=== PATIENT | female | born 1995 | race Caucasian/White ===

== ENCOUNTER 2023-11-28 09:51 | Inpatient (IN) ==
[2023-11-28] MEDS ORDERED: LIDOCAINE 1% LOCAL 20 ML VIAL INFIL PRN (10:22)
[2023-11-28] MEDS ORDERED: OXYTOCIN 30 UNITS/NSS 30 UNITS/500 ML BAG IV PRN (10:22)
[2023-11-28] MEDS ORDERED: PENICILLIN GK 6 MU in DEXTROSE 5% 250 ML IV STA (10:27)
[2023-11-28 10:56] LABS: Hematocrit (blood only) 37.8 % (37.0-47.0); Hemoglobin 12.9 g/dl (12.0-16.0); Mean Corpuscular Hemoglobin 30.6 pg (25.0-34.0); Mean Corpuscular Hgb Conc 34.1 g/dL (32.0-36.0); Mean Corpuscular Volume 89.6 fL (80.0-100.0); Mean Platelet Volume 11.8 fL (9.4-12.4); Platelet Count 188 K/uL (130-400); RDW Coefficient of Variation 12.7 % (11.5-14.5); RDW Standard Deviation 41.6 fL (36.4-46.3); Red Blood Count 4.22 M/uL (4.20-5.40); White Blood Count 8.17 K/ul (4.8-10.8)
[2023-11-28 11:09] LABS: Albumin Globulin Ratio 1.1 (0.9-2); Albumin Level 3.5 gm/dl (3.4-5.0); BUN Creatinine Ratio 17.5 (10-20); Bilirubin,Total 0.9 mg/dl (0.2-1.0); Creatinine Clr Calc Pharmacy 218.4 ml/min; Est GFR (African American) 145.2 ml/min; Est GFR (Non-African American) 125.3 ml/min; Globulin 3.1 gm/dl (2.5-4.0); Potassium 4.2 mmol/L (3.5-5.1); Total Protein 6.6 gm/dl (6.0-8.3)
[2023-11-28 11:17] LABS: Creatinine Urine Random 34.6 mg/dl; Protein Creatinine Ratio Urine 0.2 (0-0.2); Total Protein Urine Random 7.3 mg/dl (0-11.9)
--- NOTE | 2023-11-28 11:28 | History & Physical Report ---
Date of Service November 28, 2023 Assessment & Plan (1) Gestational hypertension: Plan: Dx met: gHTN without severe features. Patient has prior CSec and a cervix that is unfavorable at this time, unproven pelvis and maternal obesity. Prior section was for breech, gHTN. Baby was 7-8lb. Discussed options of IOL vs RCS with Dr. Street who will be covering care of this patient overnight tonight. [place] decision to recommend repeat based on all contributing factors, to maximize chances of safe outcome for mom and baby in present circumstances. Patient was hoping for but understands / agreeable to proceed with repeat as recommended. History of Present Illness Primary Care Provider: NO PCP 28yo @ 38w4d with gHTN, for IOL. Preeclampsia labs normal today, Pr/Cr ratio 0.2, but BP over threshold for HTN both a week ago and repeatedly again today. Recommended IOL and patient accepts. No current OB c/o. Preg c/b prior PIH, prior CSec for breech, and obese. Patient is interested in and would prefer to be induced. GBS pos. Allergies Allergy/AdvReac Type Severity Reaction Status Date / Time latex Allergy Unknown itchy Verified 11/28/23 08:55 Home Medications Medication Instructions Recorded Confirmed Type cholecalciferol (vitamin D3) 25 50 mcg PO DAILY 11/14/23 11/28/23 History mcg (1,000 unit) tablet (Vitamin D3) vit no.133-ferrous 1 tab PO QAM 11/14/23 11/28/23 History fumarate 28 mg-folic acid 800 mcg tablet () Past Med/Surg History Problem List Gestational hypertension Group beta Strep positive History of chicken pox Prior complicated by PIH, antepartum Previous delivery affecting , antepartum Medical History No known health problems Surgical History S/P section (~2021) Family History Grandmother (Maternal) No problems noted. 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: No Beliefs That Will Affect Care: None marital status: marital status details: Arnel Jones (31) [phone] Current Living Situation: Family Current Living Situation Comment: lives with spouse, daughter, no pets current occupational status: unemployed current occupation: homemaker Other Information That Helps Us Care for You: No Feels Safe at Home: Yes Safety Concerns: Feels Safe At This Time Assistive Devices: None Physical Exam Constitutional: WD/WN, vitals as above Eyes: PERRL, conjunctivae normal, anicteric sclerae ENMT: external ear and nose normal, oropharynx normal Neck: supple Respiratory: normal respiratory effort and able to speak in complete sentences; no respiratory distress Cardiovascular: Rate/Rhythm: regular rate and regular rhythm Extremities: + pedal edema (2+) Gastrointestinal (Abdomen): Gravid / AGA, morbid obesity, NT Musculoskeletal: no cyanosis or clubbing, extremities motor strength 5/5 Skin: no rashes, warm and dry Neurologic: patellar DTR's 2+ bilat, sensation intact Psychiatric: A+Ox3, euthymic affect Genitourinary: Speculum/Bimanual Exam: no vaginal lesions, no vaginal bleeding and uterus nontender OB Exam Abdomen: + vertex and + estimated weight (8) Manual OB Exam: + cervical dilation 1 cm, + cervical effacement (thick), + station high and + amniotic fluid (No leaking evident) OB Exam Monitor Tracing: + external FHT monitor used, + external uterine monitor used and + category I Lymphatic: no cervical or axillary lymphadenopathy Results & Data Results & Data Vital Signs (Past 12 Hours) Vital Signs Temp Pulse Resp BP 11/28/23 11:21 78 11/28/23 11:21 140/95 11/28/23 11:06 82 11/28/23 11:06 148/93 H 11/28/23 10:51 94 H 11/28/23 10:51 149/94 H 11/28/23 10:36 81 11/28/23 10:36 150/92 H 11/28/23 10:21 90 11/28/23 10:21 134/91 11/28/23 10:11 98.4 F 20 11/28/23 10:05 20 11/28/23 10:05 98.2 F 11/28/23 10:04 95 H 137/90 PG Care Time/CCT Total # of Minutes Spent Total Time Spent with Patient: Total time spent is greater than 50% in coordination of care (as documented) at patient's floor/unit and/or counseling patient: Coding Level of Care Code None Diagnoses Gestational hypertension O13.9
[2023-11-28] MEDS: LACTATED RINGER'S 1,000 ML IV PRN (12:11)
--- NOTE | 2023-11-28 13:04 | Anesthesiology Consultation ---
Date of Service November 28, 2023 Assessment & Plan (1) Encounter for pre-operative examination: Chart Review Chart Review: Acceptable Risk for Surgery and Patient NOT seen in Pre Admission Testing Consults Requested none History Surgery Operation Date: 11/28/23 12:[address] Scan Lung Biopsy - Elly Almanza MD Height/Weight Height: 5 ft 7 in Weight: 145.15 kg Allergies Allergy/AdvReac Type Severity Reaction Status Date / Time latex Allergy Unknown itchy Verified 11/28/23 08:55 Medications Home Medications Medication Instructions Recorded Confirmed Last Taken cholecalciferol (vitamin D3) 25 50 mcg PO DAILY 11/14/23 11/28/23 Unknown mcg (1,000 unit) tablet (Vitamin D3) vit no.133-ferrous 1 tab PO QAM 11/14/23 11/28/23 Unknown fumarate 28 mg-folic acid 800 mcg tablet () Active Medications Generic Name Dose Route Start Last Admin Trade Name Freq PRN Reason Stop Dose Admin Lactated Ringer's 1,000 mls @ 125 mls/hr 11/28/23 10:22 11/28/23 12:11 Lr IV 11/30/23 10:21 999 mls/hr .Q8H PRN Administration L&D Protocol Protocol Past Medical History Medical History No known health problems Past Family History Family History Grandmother (Maternal) No problems noted. Grandmother (Paternal) Ovarian cancer Father Prostate cancer Denies family history of Breast cancer Colorectal cancer Past Surgical History Surgical History S/P section (~2021) Social History Smoking Status: Never smoker Do You Dip or Chew Tobacco: No Hx Alcohol Use: No Hx Substance Use: No substance use type: does not use Physical Exam Vital Signs Last Vital Signs Temp 98.4 F 11/28/23 10:11 Pulse 78 11/28/23 11:21 Resp 20 11/28/23 10:11 BP 140/95 11/28/23 11:21 Testing Laboratory Results 11/28/23 10:37 11/28/23 10:37 Blood Type B Positive 11/28/23 10:37 Antibody Screen NEGATIVE 11/28/23 10:37
[2023-11-28] MEDS ORDERED: MoRPHine SULFATE PF 1 MG/ML 10 ML AMP/VIAL ONE (13:05)
[2023-11-28] MEDS ORDERED: fentaNYL citrate PF 100 MCG/2 ML VIAL ONE (13:05)
[2023-11-28] MEDS ORDERED: PENICILLIN GK 3 MU in DEXTROSE 5% 100 ML IV PRN (13:22)
[2023-11-28] MEDS: ceFAZolin 3000MG 3,000 MG/72.5 ML BAG IV SCH (13:50)
[2023-11-28] MEDS: CITRIC ACID/SODIUM CITRATE 15 ML UDC PO SCH (13:51)
[2023-11-28] MEDS ORDERED: ONDANSETRON INJ 2 MG/ML 2 ML VIAL ONE (14:12)
[2023-11-28] MEDS ORDERED: PHENYLEPHRINE HCL 25 MG/250 ML NSS IV ONE (14:12)
[2023-11-28] MEDS ORDERED: OXYTOCIN 10 UNITS/ML VIAL ONE (14:12)
[2023-11-28] MEDS ORDERED: KETOROLAC 30 MG/ML VIAL ONE (14:12)
[2023-11-28] MEDS ORDERED: ePHEDrine sulfate 50 MG/ML AMP IV PRN (14:21)
[2023-11-28] MEDS ORDERED: ACETAMINOPHEN 1,000 MG/100 ML VIAL IV PRN (14:21)
[2023-11-28] MEDS ORDERED: PROMETHAZINE HCL 6.25 MG in SODIUM CHLORIDE 0.9% 50 ML IV PRN (14:21)
[2023-11-28] MEDS ORDERED: NALBUPHINE HCL 5 MG in SYRINGE 0 ML IV PRN (14:21)
[2023-11-28] MEDS ORDERED: NALOXONE HCL 0.08 MG in SYRINGE 1.8 ML IV PRN (14:21)
[2023-11-28] MEDS ORDERED: KETOROLAC 30 MG/ML VIAL IV PRN (14:21)
[2023-11-28] MEDS ORDERED: NALOXONE HCL 1 MG in SODIUM CHLORIDE 0.9% 1,000 ML IV PRN (14:21)
[2023-11-28] MEDS ORDERED: ONDANSETRON INJ 2 MG/ML 2 ML VIAL IV PRN (14:21)
[2023-11-28] MEDS ORDERED: diphenhydrAMINE 50 MG/ML VIAL IV PRN (14:21)
[2023-11-28] MEDS ORDERED: HYDROmorphone INJ 0.5 MG/0.5 ML SYR IV PRN (14:21)
[2023-11-28] MEDS ORDERED: LACTATED RINGER'S 500 ML IV PRN (14:21)
[2023-11-28] MEDS ORDERED: NALOXONE HCL 0.4 MG/1 ML VIAL/CARP IV PRN (14:21)
[2023-11-28] MEDS ORDERED: DC INTRASPINAL MORPHINE SCH (14:30)
[2023-11-28] MEDS ORDERED: NO NARCOTICS OR SEDATIVES SCH (14:30)
[2023-11-28] MEDS ORDERED: ARISTA ABSORBABLE HEMOSTAT 3GM TOP ONE (14:38)
[2023-11-28] MEDS ORDERED: DIPHTHER/TETAN/PERTUS Vaccine (Tdap, Adol/Adult) 0.5mL IM ONE (14:53)
[2023-11-28] MEDS ORDERED: HYDROCORTISONE ACETATE 25 MG SUPP PR PRN (14:53)
[2023-11-28] MEDS ORDERED: SENNA 8.6 MG TAB PO PRN (14:53)
[2023-11-28] MEDS ORDERED: PROMETHAZINE HCL 25 MG in SODIUM CHLORIDE 0.9% 50 ML IV PRN (14:53)
[2023-11-28] MEDS ORDERED: MAGNESIUM HYDROXIDE SUSP 30 ML UDC PO PRN (14:53)
[2023-11-28] MEDS ORDERED: BENZOCAINE 20% SPRY 85 APPLN/85 GM CAN EXT PRN (14:53)
--- NOTE | 2023-11-28 15:05 | Operative Report ---
PG Post Operative Report Pre & Post Diagnosis Operation Date: 11/28/23 12:30 Pre-Op Diagnosis: Gestational hypertension @ 38+ weeks, Prior Section, Maternal Obesity, GBS + Post-Op Diagnosis: Same I identified the patient and participated in the time-out.: Yes Procedure Operation Date: 11/28/23 12:30 Actual Procedures Repeat Low Transverse Section with two layer closure Surgeon Elly Almanza MD Content Strategist Yenifer Estimated Blood Loss 420 (Quantitative) Findings Consistent with Post-Op Diagnosis Specimens Placenta, Cord blood Anesthesia Type Spinal Complications none Disposition Accompanied Patient To Recovery: Yes Disposition: L&D Description of Procedure The patient was placed operating table in the supine position with a leftward tilt. She was prepped and draped in standard sterile fashion. The anesthetic was tested and found to be adequate. A time-out was held, identifying correct patient, procedure, positioning and preoperative antibiotics. There were no concerns. A Pfannenstiel skin incision was made with a knife excising the prior cicatrix and taken down to the underlying layer of fascia. The fascia was incised in the midline with the knife and taken out laterally with scissors. The superior edge of the fascial incision was grasped, elevated and dissected off the underlying rectus both superiorly and inferiorly. The muscles were bluntly in the midline. The peritoneum was entered bluntly. The incision was then stretched. An Robert retractor was placed. The bladder retractor was placed. The vesicouterine peritoneum was identified, entered with scissors and taken out laterally with scissors. The bladder flap was created digitally. A hysterotomy incision was created transversely in the lower uterine segment, final entry being accomplished in a blunt manner with the potato chip packaging machine operator's fingers. Clear amniotic fluid was encountered. The potato chip packaging machine operator's hand was used to elevate the head to the hysterotomy. The head was delivered using mild fundal pressure, and the shoulders and body followed without difficulty. The cord was clamped and cut and the infant was then handed off to the awaiting hydrocrane operator. Cord blood was obtained. The placenta was Manually extracted. The uterus was cleared of all clot and debris with moistened laparotomy sponges. The hysterotomy incision was repaired in two layers, the first in a running locked layer, the second in an imbricating layer. The gutters were cleared of clot and debris. A final inspection of the hysterotomy revealed incomplete hemostasis, so [place] 3g was applied and pressure held for 60sec. When oozing persisted at two specific spots, these were addressed with a [id number] suture of vicryl each, for excellent hemostasis. The rectus muscles were allowed to reapproximate naturally. The fascia was then reapproximated with 1 Vicryl in a running nonlocked manner. The fascia was examined and found to be free of defect following closure. The subcutaneous tissue was copiously irrigated and reapproximated with 0-chromic, then the skin edges were closed with 4-0 monocryl in a subcuticular fashion. A dermabond dressing was applied. The mary was found to be draining clear yellow urine at completion of the procedure. I attest to the content of the Intraoperative Record and any orders documented therein. Any exceptions are noted below. I attest to the content of the Intraoperative Record and any orders documented therein. Any exceptions are noted below. OB Procedure Charges 21084
--- NOTE | 2023-11-28 15:38 | Anesthesiology Progress Note ---
Date of Service November 28, 2023 Anesthesia Post Procedure Vital Signs Vital Signs: Temp Pulse Resp BP Pulse Ox 11/28/23 15:32 98 11/28/23 15:32 71 11/28/23 15:30 77 11/28/23 15:30 126/59 L 11/28/23 15:27 98 11/28/23 15:27 66 11/28/23 15:22 97 11/28/23 15:22 65 11/28/23 15:21 73 11/28/23 15:21 122/58 L 11/28/23 15:17 97 11/28/23 15:17 73 11/28/23 15:15 91 11/28/23 15:15 70 11/28/23 15:12 97 11/28/23 15:12 82 11/28/23 15:08 86 11/28/23 15:08 129/69 11/28/23 15:07 97 11/28/23 15:07 87 11/28/23 11:21 78 11/28/23 11:21 140/95 11/28/23 11:06 82 11/28/23 11:06 148/93 H 11/28/23 10:51 94 H 11/28/23 10:51 149/94 H 11/28/23 10:36 81 11/28/23 10:36 150/92 H 11/28/23 10:21 90 11/28/23 10:21 134/91 11/28/23 10:11 98.4 F 20 11/28/23 10:05 20 11/28/23 10:05 98.2 F 20 11/28/23 10:04 95 H 137/90 Transfer of Care Handoff Completed per policy Notes Mental Status: alert / awake / arousable and participated in evaluation Patient Amnestic to Procedure: Yes Nausea / Vomiting: adequately controlled Pain: adequately controlled Airway Patency, RR, SpO2: stable & adequate BP & HR: stable & adequate Hydration State: stable & adequate Neuraxial Anesthesia: was administered and sensory block is resolving Anesthetic Complications: no major complications apparent and Pt Satisfied with anesthetic care
[2023-11-28] MEDS ORDERED: SODIUM CHLORIDE 0.9% 250 ML IV PRN (15:47)
[2023-11-28] MEDS: OXYTOCIN 20 UNITS/LR 1,002 ML IV SCH (17:24)
[2023-11-28] MEDS: SIMETHICONE 80 MG CHEW PO SCH (18:29)
[2023-11-28] MEDS: DOCUSATE SODIUM 100 MG CAP PO SCH (20:55)
[2023-11-28] MEDS: LACTATED RINGER'S 1,000 ML IV ONE (21:50)
[2023-11-29] MEDS ORDERED: CITRIC ACID/SODIUM CITRATE 15 ML UDC PO SCH (06:00)
--- NOTE | 2023-11-29 07:02 | Obstetrical Progress Note ---
Date of Service November 29, 2023 Assessment & Plan (1) Gestational hypertension: Day 1 status post repeat section. Doing well. Routine care. Blood pressures within normal limit Trimester: third trimester Qualified Code(s): O13.3 - Gestational [-induced] hypertension without significant proteinuria, third trimester (2) Encounter for care and examination after delivery: Subjective Ambulation: ambulating normally Voiding: no voiding problems Passing Gas:: Yes Diet Tolerance:: regular diet Lochia:: Moderate Feeding Type:: breast feeding Physical Exam Constitutional WD/WN, vitals as above Respiratory normal respiratory effort; no respiratory distress and no labored breathing Cardiovascular Extremities: no calf tenderness Gastrointestinal (Abdomen) Inspection/Auscultation: abdomen normal to inspection; abdomen not distended Percussion/Palpation: abdomen soft; abdomen nontender, no guarding and abdomen not rigid Incision clean, dry and intact Genitourinary OB Exam Abdomen: + fundal height Fundus: + firm and + relation to umbilicus (Below); not tender or not boggy Results & Data Vital Signs (Past 12 Hours) Vital Signs Temp Pulse Resp BP Pulse Ox Pulse Ox O2 Del Method 11/29/23 03:00 16 95 11/29/23 03:00 36.9 C 102 H 18 112/82 100 Room Air 11/29/23 02:00 18 100 11/29/23 01:00 18 96 11/29/23 00:25 20 94 11/28/23 23:30 36.9 C 110 H 18 112/86 97 Room Air 11/28/23 23:00 18 97 11/28/23 22:00 18 96 11/28/23 21:00 20 99 11/28/23 20:00 18 98 11/28/23 19:32 36.5 C 127 H 20 124/91 100 Room Air 11/28/23 19:30 18 100 11/28/23 19:30 100 O2 Del Method 11/29/23 03:00 11/29/23 03:00 11/29/23 02:00 11/29/23 01:00 11/29/23 00:25 11/28/23 23:30 11/28/23 23:00 11/28/23 22:00 11/28/23 21:00 11/28/23 20:00 11/28/23 19:32 11/28/23 19:30 11/28/23 19:30 Room Air
[2023-11-29 07:52] LABS: Basophils # (auto) 0.02 K/uL (0.00-0.20); Basophils % (auto) 0.2 %; Hematocrit (blood only) 30.4 % (37.0-47.0); Hemoglobin 10.5 g/dl (12.0-16.0); Immature Granulocytes # (auto) 0.05 K/uL (0.01-0.20); Immature Granulocytes % (auto) 0.4 %; Lymphocytes # (auto) 1.41 K/uL (1.20-3.40); Lymphocytes % (auto) 11.1 %; Mean Corpuscular Hemoglobin 31.2 pg (25.0-34.0); Mean Corpuscular Hgb Conc 34.5 g/dL (32.0-36.0); Mean Corpuscular Volume 90.2 fL (80.0-100.0); Mean Platelet Volume 12.2 fL (9.4-12.4); Monocytes # (auto) 0.69 K/uL (0.11-0.59); Monocytes % (auto) 5.5 %; Neutrophils # (auto) 10.48 K/uL (1.40-6.50); Neutrophils % (auto) 82.8 %; Platelet Count 231 K/uL (130-400); Red Blood Count 3.37 M/uL (4.20-5.40); White Blood Count 12.65 K/ul (4.8-10.8)
[2023-11-29] MEDS: LACTATED RINGER'S 1,000 ML IV SCH (08:15)
[2023-11-29] MEDS ORDERED: ONDANSETRON INJ 2 MG/ML 2 ML VIAL IV PRN (08:22)
[2023-11-29] MEDS ORDERED: KETOROLAC 30 MG/ML VIAL IV PRN (08:22)
[2023-11-29] MEDS ORDERED: diphenhydrAMINE 50 MG/ML VIAL IV PRN (08:22)
[2023-11-29] MEDS ORDERED: diphenhydrAMINE Capsule 25 MG CAP PO PRN (08:22)
[2023-11-29] MEDS: FERROUS SULFATE 325 MG TAB PO SCH (09:01)
[2023-11-29] MEDS: PRENATAL VITAMIN 1 TAB PO SCH (09:01)
[2023-11-29] MEDS: IBUPROFEN 600 MG TAB PO PRN (09:01)
[2023-11-29] MEDS: MoRPHine SULFATE PF 1 MG/ML 10 ML AMP/VIAL INT SPINAL ONE (10:53)
[2023-11-29] MEDS: SODIUM CHLORIDE 0.9% 1,000 ML IV SCH (10:53)
[2023-11-29] MEDS: bisacodyL 5 MG TABEC PO SCH (19:40)
[2023-11-29] MEDS: oxyCODONE/ACETAMINOPHEN 5mg/325mg TAB PO PRN (19:41)
[2023-11-30 06:48] LABS: Hematocrit (blood only) 22.8 % (37.0-47.0); Hemoglobin 7.8 g/dl (12.0-16.0)
--- NOTE | 2023-11-30 09:08 | Obstetrical Progress Note ---
Date of Service November 30, 2023 Assessment & Plan (1) Gestational hypertension: BP normalized, no meds required. Trimester: third trimester Qualified Code(s): O13.3 - Gestational [-induced] hypertension without significant proteinuria, third trimester (2) Encounter for care and examination after delivery: Clinically doing great. Hgb noted but patient tolerating well and lochia WNL, so will d/c home with PO iron. Subjective Ambulation: ambulating normally Voiding: no voiding problems Passing Gas:: Yes Diet Tolerance:: regular diet Lochia:: Small Feeding Type:: breast feeding Physical Exam Sitting in chair , then moved to bed for exam. Constitutional WD/WN, vitals as above Eyes PERRL, conjunctivae normal, anicteric sclerae Neck normal visual inspection Respiratory normal respiratory effort and able to speak in complete sentences; no respiratory distress and no labored breathing Cardiovascular Rate/Rhythm: regular rate and regular rhythm Extremities: no edema Chest (Breasts) Chest: normal inspection of chest Gastrointestinal (Abdomen) Inspection/Auscultation: abdomen normal to inspection Soft, postgravid. Incision C/D/I with surgical glue Psychiatric A+Ox3, euthymic affect Genitourinary OB Exam Abdomen: + fundal height Fundus: + firm and + relation to umbilicus (fundus just below umbilicus); not tender Results & Data Vital Signs (Past 12 Hours) Vital Signs Temp Pulse Resp BP Pulse Ox O2 Del Method 11/29/23 23:45 98.1 F 94 H 18 123/86 97 Room Air
[2023-11-30] MEDS ORDERED: bisacodyL 10 MG SUPP PR PRN (14:53)
--- NOTE | 2023-12-02 07:52 | Discharge Summary ---
Date of Service December 02, 2023 Admission HPI Per Admitting Provider 28yo @ 38w4d with gHTN, for IOL. Preeclampsia labs normal today, Pr/Cr ratio 0.2, but BP over threshold for HTN both a week ago and repeatedly again today. Recommended IOL and patient accepts. No current OB c/o. Preg c/b prior PIH, prior CSec for breech, and obese. Patient is interested in and would prefer to be induced. GBS pos. Admission Exam (Per Admitting) Constitutional WD/WN, vitals as above Eyes PERRL, conjunctivae normal, anicteric sclerae ENMT external ear and nose normal, oropharynx normal Neck normal visual inspection Respiratory normal respiratory effort and able to speak in complete sentences; no respiratory distress and no labored breathing Cardiovascular Rate/Rhythm: regular rate and regular rhythm Extremities: + pedal edema (2+); no edema Chest (Breasts) Chest: normal inspection of chest Gastrointestinal (Abdomen) Inspection/Auscultation: abdomen normal to inspection Musculoskeletal no cyanosis or clubbing, extremities motor strength 5/5 Skin no rashes, warm and dry Neurologic patellar DTR's 2+ bilat, sensation intact Psychiatric A+Ox3, euthymic affect Genitourinary Speculum/Bimanual Exam: no vaginal lesions, no vaginal bleeding and uterus nontender OB Exam Abdomen: + fundal height, + vertex, + estimated weight (8) and + regular contractions (Q3) Manual OB Exam: + cervical dilation + 1 cm, + cervical effacement (thick), + station + high and + amniotic fluid (No leaking evident) OB Exam Monitor Tracing: + external FHT monitor used, + external uterine monitor used and + category I Lymphatic no cervical or axillary lymphadenopathy Discharge Data Consultations 11/28/23 10:22 Consult Anesthesiology Stat Procedures Performed Operation Date: 11/28/23 12:30 Actual Procedures p Section in LD, delivery of live female child at 1429(Bilateral) - Elly Almanza MD Hospital Course (1) Gestational hypertension: BP normalized, no meds required. (2) Encounter for care and examination after delivery: Clinically doing great. Hgb noted but patient tolerating well and lochia WNL, so will d/c home with PO iron. Coding Level of Care Code None Diagnoses Gestational hypertension, third trimester O13.3 Trimester: third trimester Encounter for care and examination after delivery Z39.2
== END 2023-11-30 11:30 | disposition home or self-care (01) | DRG 788 ==
LOC: OPB 09:51 → 4S1 09:55 → 4E2 18:14
DX: O34.211 Maternal care for low transverse scar from previous cesarean delivery; Z28.21 Immunization not carried out because of patient refusal; Z91.040 Latex allergy status; B95.1 Streptococcus, group B, as the cause of diseases classified elsewhere; Z37.0 Single live birth; O13.9 Gestational [pregnancy-induced] hypertension without significant proteinuria, unspecified trimester; O99.824 Streptococcus B carrier state complicating childbirth

== ENCOUNTER 2025-01-21 05:26 | Inpatient (IN) ==
--- NOTE | 2025-01-10 15:17 | Anesthesiology Consultation ---
Date of Service January 10, 2025 Assessment & Plan (1) Encounter for pre-operative examination: - Per matching machine operator on 01/10/25: No known infectious disease contacts, current infectious disease symptoms in past 10 days or COVID positive test result in the past 30 days. Chart Review Chart Review: carpentry supervisor initiated History Surgery Operation Date: 01/21/25 08:50 Proposed Procedures p Section (Delivery of Baby Through Abdominal Incision) - Paola Rivas, DO Height/Weight Height: 5 ft 7 in Weight: 133.356 kg Allergies Allergy/AdvReac Type Severity Reaction Status Date / Time latex Allergy Unknown itchy Verified 01/10/25 14:20 Medications Home Medications Medication Instructions Recorded Confirmed Last Taken cholecalciferol (vitamin D3) 25 50 mcg PO DAILY 11/14/23 01/10/25 Unknown mcg (1,000 unit) tablet (Vitamin D3) vits no.133-ferrous 1 tab PO QAM 11/14/23 01/10/25 Unknown fumarate 28 mg-folic acid 800 mcg tablet () lactobacillus combination no.4 3 3,000 mmu cells PO DAILY 01/10/25 01/10/25 Unknown billion cell capsule (Probiotic) Past Medical History Medical History (Updated 01/10/25 @ 15:16 by Juany Jang PA-C) Gestational hypertension History of chicken pox childhood Past Family History Family History Grandmother (Maternal) No problems noted. Grandmother (Paternal) Ovarian cancer Father Prostate cancer Denies family history of Breast cancer Colorectal cancer Past Surgical History Surgical History S/P section (~2021) x2 Social History Smoking Status: Never smoker Do You Dip or Chew Tobacco: No Hx Alcohol Use: No Hx Substance Use: No substance use type: does not use Lab Results Anesthesia Preop Results Results Anesthesia Widget: Hgb 12.1 g/dl (12.0-16.0) 12/10/24 Hct 36.0 % (37.0-47.0) L 12/10/24 Urine Color Yellow 12/10/24 Urine Appearance Clear (Clear) 12/10/24 Urine pH 7.5 (4.5-7.5) 12/10/24 Urine Specific [place] 1.004 (1.000-1.030) 12/10/24 Urine Protein Negative (Negative) 12/10/24 Urine Glucose (UA) Negative (Negative) 12/10/24 Urine Ketones Negative (Negative) 12/10/24 Urine Blood Negative (Negative) 12/10/24 Urine Nitrite Negative (Negative) 12/10/24 Urine Bilirubin Negative (Negative) 12/10/24 Urine Urobilinogen Negative (Negative) 12/10/24 Urine Leukocyte Esterase 1+ (Negative) H 12/10/24 Urine WBC (Auto) 0-5 /hpf (0-5) 12/10/24 Urine RBC (Auto) 0-2 /hpf (0-2) 12/10/24 Urine Hyaline Casts (Auto) 0-2 /lpf (0-2) 12/10/24 Urine Epithelial Cells (Auto) 3-5 /hpf (0-2) H 12/10/24 Urine Bacteria (Auto) None Seen (None Seen) 12/10/24
--- NOTE | 2025-01-20 11:03 | History & Physical Report ---
Date of Service January 20, 2025 Assessment & Plan (1) Previous delivery affecting , antepartum: Plan: Plan for repeat section, reviewed consent in detail. Discussed increased risk of scarring d/t previous c-sections, which increases risk of in jury during surgery. Questions answered. History of Present Illness Chief Complaint: repeat section Primary Care Provider: PHYLICIA PCP 29yo with EDC 02/02/25. Previous Section affecting x 2 C/S SCHEDULED 01/21/[address] KIRK AND DR. DICKEY ASSIST Hx gHTN in prior two pregnancies GBS + in urine CHTN *Baby ASA daily start 12-28 wks, continue until delivery *wkly NST's @32wks and twice wkly @36 wks *Serial Growth US @ 24 (doppler only if abnml) *Baseline 24hr urine (additioinal PRN) *weekly LUDIN's @ 32wk(If on Meds) *Deliver [id number] (If on Meds) *Deliver [id number] (Not on Meds) Obesity (BMI 40 and higher @ beginning of ) *Growth US @ 32wks *Weekly NSTs @ 34wks *BMI 40 or greater offer detailed/level II anatomy at [facility] - she would prefer to do it here *BMI 40 or above offer delivery by [facility]. Rubella non-immune offer MMR pp Hepatitis B non-immune recommend vaccine Allergies Allergy/AdvReac Type Severity Reaction Status Date / Time latex Allergy Unknown itchy Verified 01/20/25 10:07 Home Medications Medication Instructions Recorded Confirmed Type cholecalciferol (vitamin D3) 25 50 mcg PO DAILY 11/14/23 01/20/25 History mcg (1,000 unit) tablet (Vitamin D3) vits no.133-ferrous 1 tab PO QAM 11/14/23 01/20/25 History fumarate 28 mg-folic acid 800 mcg tablet () lactobacillus combination no.4 3 3,000 mmu cells PO DAILY 01/10/25 01/20/25 History billion cell capsule (Probiotic) Patient History Medical History (Updated 01/10/25 @ 15:16 by Juany Jang PA-C) Gestational hypertension History of chicken pox childhood Surgical History S/P section (~2021) x2 Family History Grandmother (Maternal) No problems noted. Grandmother (Paternal) Ovarian cancer Father Prostate cancer Denies family history of Breast cancer Colorectal cancer Social History Smoking Status: Never smoker Second Hand Exposure: No; Do You Dip or Chew Tobacco: No; Tobacco Cessation Education Requested by Patient: No Hx Alcohol Use: No Hx Substance Use: No Preferred Language: Serbian Communication Ability: Effective Internet Programmer Required: No Beliefs That Will Affect Care: None marital status: marital status details: Arnel Jones (32) [phone] Current Living Situation: Family current occupational status: unemployed current occupation: homemaker Other Information That Helps Us Care for You: No Feels Safe at Home: Yes Safety Concerns: Feels Safe At This Time Assistive Devices: Glasses Review of Systems All systems reviewed & are unremarkable except as noted in HPI & below Physical Exam Constitutional: WD/WN, vitals as above Respiratory: normal respiratory effort, lungs clear to auscultation no respiratory distress Cardiovascular: Rate/Rhythm: regular rate and regular rhythm Gastrointestinal (Abdomen): Inspection/Auscultation: abdomen normal to inspection Percussion/Palpation: abdomen soft; abdomen nontender Gravid. No s/s chorio or abruption. Skin: no rashes, warm and dry Psychiatric: A+Ox3, euthymic affect Coding Level of Care Code None Diagnoses Previous delivery affecting , antepartum O34.219
[2025-01-21] MEDS ORDERED: SODIUM CHLORIDE 0.9% 100 ML IV PRN (05:28)
[2025-01-21] MEDS: LACTATED RINGER'S 1,000 ML IV SCH (05:40)
[2025-01-21 06:17] LABS: Hematocrit (blood only) 36.3 % (37.0-47.0); Hemoglobin 12.4 g/dl (12.0-16.0); Mean Corpuscular Hemoglobin 30.8 pg (25.0-34.0); Mean Corpuscular Volume 90.1 fL (80.0-100.0); Platelet Count 172 K/uL (130-400); RDW Standard Deviation 43.4 fL (36.4-46.3); Red Blood Count 4.03 M/uL (4.20-5.40); White Blood Count 6.87 K/ul (4.8-10.8)
[2025-01-21] MEDS ORDERED: LACTATED RINGER'S 1,000 ML IV SCH (06:30)
[2025-01-21] MEDS: ACETAMINOPHEN 500 MG TAB PO SCH (06:37)
[2025-01-21] MEDS ORDERED: MoRPHine SULFATE PF 1 MG/ML 10 ML AMP/VIAL ONE (06:55)
[2025-01-21] MEDS ORDERED: PHENYLEPHRINE HCL 10 MG/ML VIAL ONE (06:58)
[2025-01-21] MEDS: ceFAZolin 3000MG 3,000 MG/72.5 ML BAG IV SCH (07:07)
[2025-01-21] MEDS ORDERED: ONDANSETRON INJ 2 MG/ML 2 ML VIAL ONE (07:10)
[2025-01-21] MEDS ORDERED: DEXAMETHASONE SOD INJ 4 MG/ML VIAL ONE (07:10)
[2025-01-21] MEDS ORDERED: METOCLOPRAMIDE HCL INJ 5 MG/ML 2 ML VIAL ONE (07:10)
[2025-01-21] MEDS ORDERED: OXYTOCIN 10 UNITS/ML VIAL ONE ×3 (07:10→08:20)
--- NOTE | 2025-01-21 07:27 | History & Physical Bridge Note ---
Date of Service January 21, 2025 History & Physical Bridge Note I have examined the patient, reviewed the History & Physical and in the interval since the performance of the History & Physical I have noted the following changes of clinical significance: no changes noted
[2025-01-21] MEDS: CITRIC ACID/SODIUM CITRATE 15 ML UDC PO SCH (07:30)
[2025-01-21] MEDS ORDERED: diphenhydrAMINE 50 MG/ML VIAL IV PRN (07:54)
[2025-01-21] MEDS ORDERED: LACTATED RINGER'S 500 ML IV PRN (07:54)
[2025-01-21] MEDS ORDERED: NALOXONE HCL 1 MG in SODIUM CHLORIDE 0.9% 1,000 ML IV PRN (07:54)
[2025-01-21] MEDS ORDERED: NALOXONE HCL 0.08 MG in SYRINGE 1.8 ML IV PRN (07:54)
[2025-01-21] MEDS ORDERED: NALBUPHINE HCL INJ 10 MG/ML AMP IV PRN (07:54)
[2025-01-21] MEDS ORDERED: ONDANSETRON INJ 2 MG/ML 2 ML VIAL IV PRN (07:54)
[2025-01-21] MEDS ORDERED: NALOXONE HCL 0.4 MG/1 ML VIAL/CARP IV PRN (07:54)
[2025-01-21] MEDS ORDERED: PROMETHAZINE 6.25 MG/50.25 ML BAG IV PRN (07:54)
[2025-01-21] MEDS ORDERED: MoRPHine SULFATE 2 MG/ML CARP IV PRN (07:54)
[2025-01-21] MEDS ORDERED: NO NARCOTICS OR SEDATIVES SCH (08:00)
[2025-01-21] MEDS ORDERED: DC INTRASPINAL MORPHINE SCH (08:00)
[2025-01-21] MEDS ORDERED: ePHEDrine sulfate 50 MG/5 ML SYR ONE (08:27)
[2025-01-21] MEDS ORDERED: SODIUM CHLORIDE 0.9% PF INJ 10 ML VIAL ONE (08:28)
[2025-01-21 08:33] LABS: Base Excess Cord Venous Blood -7.1 mEq/L (-7.7-1.9); Cord Venous Blood PO2 30 mmHg (14.1-43.3); O2 Saturation Cord Venous Bld < 60.0 % (<68)
[2025-01-21 08:34] LABS: Base Excess Cord Arterial Bld -10.5 mEq/L (-9-1.8); CO2 Cord Arterial Blood 80 mmHg (39.1-73.5); HCO3 Cord Arterial Blood 22 mmol/L (19.7-28.5); Oxygen Sat Cord Arterial Blood < 60.0 % (<60); PO2 Cord Arterial Blood < 20 mmHg (4.1-31.7); pH Cord Arterial Blood 7.04 (7.1-7.38)
--- NOTE | 2025-01-21 08:53 | Operative Report ---
Post Operative Report Pre & Post Diagnosis Operation Date: 01/21/25 07:30 Pre-Op Diagnosis: History of Section, Chronic Hypertension Post-Op Diagnosis: Same; Delivery of a live female child at 0806 I identified the patient and participated in the time-out.: Yes Procedure Operation Date: 01/21/25 07:30 Repeat Low Transverse Section Surgeon Paola Rivas, DO Certified Family Mediator Prema Street MD Quantitative Blood Loss (QBL) 205 Findings Consistent with Post-Op Diagnosis Viable female Apgars 8/9. Weight pending, please see nursery reports. Normal appearing uterus, tubes, ovaries. Specimens cord blood, cord gas, placenta Drains mary clear yellow Anesthesia Type Spinal Complications none Disposition Accompanied Patient To Recovery: Yes Disposition: L&D Indications 29yo @ 38 08/13, h/o x 2, cHTN Description of Procedure The patient was seen in her labor and delivery room, risks benefits and alternatives to surgery were reviewed. Informed consent obtained in office. Questions were answered. She was taken to the operating room, spinal anesthesia was administered. She was then prepared and draped in the usual sterile fashion in the supine position with a leftward tilt. Timeout was confirmed. A Pfannenstiel skin incision was made with a scalpel, and carried through to the underlying layer of fascia. Fascia was nicked at midline, and this incision was extended bilaterally. The superior aspect of the fascial incision was grasped with Dee clamps x2, elevated off the underlying rectus abdominis muscles, and dissected sharply and bluntly. In similar fashion, the inferior aspect of the fascial incision was dissected. The rectus abdominis muscles were , and the peritoneum was entered bluntly digitally. This was extended bilaterally. The bladder flap was taken down carefully using Metzenbaum scissors. Using a new scalpel, a low transverse uterine incision was created. Clear amniotic fluid noted. The was delivered from a cephalic presentation. The head delivered, followed by shoulders and body. Spontaneous cry on the field. The cord was doubly clamped and cut, and the infant was handed off to the waiting nickel operator. A segment was retained for cord gases. Cord blood was obtained. The placenta was delivered spontaneously intact. The uterus was exteriorized, and cleared of all clots and debris. The hysterotomy incision was reapproximated using 0 Vicryl in a running locked stitch. A second layer of the same suture was used to imbricate the incision. Posterior uterus was evaluated and normal. The uterus was returned to the abdomen, and gutters were cleared of clots and debris. Excellent hemostasis was observed. The fascial incision was reapproximated using 0 Vicryl in a running stitch. The subcutaneous tissue was irrigated, and reapproximated using 2-0 plain gut in a running stitch. The skin was reapproximated using 4-0 Vicryl in a running subcuticular stitch. Steri-Strips and a bandage were applied. The patient tolerated the procedure well, and will be taken to the recovery area in stable and good condition. I attest to the content of the Intraoperative Record and any orders documented therein. Any exceptions are noted below. OB Procedure Charges 19078
[2025-01-21] MEDS ORDERED: BENZOCAINE 20% SPRY 85 APPLN/85 GM CAN EXT PRN (09:07)
[2025-01-21] MEDS ORDERED: HYDROmorphone INJ 0.5 MG/0.5 ML SYR IV PRN (09:07)
[2025-01-21] MEDS ORDERED: CALCIUM CARBONATE 500 MG CHEWABLE TAB PO PRN (09:07)
[2025-01-21] MEDS ORDERED: SENNA 8.6 MG TAB PO PRN (09:07)
[2025-01-21] MEDS ORDERED: MAGNESIUM HYDROXIDE SUSP 30 ML UDC PO PRN (09:07)
[2025-01-21] MEDS ORDERED: HYDROCORTISONE ACETATE 25 MG SUPP PR PRN (09:07)
[2025-01-21] MEDS: KETOROLAC 30 MG/ML VIAL IV SCH (09:35)
--- NOTE | 2025-01-21 12:10 | Anesthesiology Progress Note ---
Date of Service January 21, 2025 Anesthesia Post Procedure Vital Signs Vital Signs: Temp Pulse Resp BP Pulse Ox 01/21/25 11:40 16 98 01/21/25 10:50 36.5 C 18 01/21/25 10:49 54 L 113/58 L 01/21/25 10:46 61 96 01/21/25 10:42 52 L 96/52 L 01/21/25 10:41 52 L 96 01/21/25 10:36 60 96 01/21/25 10:32 50 L 102/52 L 01/21/25 10:31 53 L 97 01/21/25 10:26 61 97 01/21/25 10:22 56 L 96/54 L 01/21/25 10:21 69 95 01/21/25 10:20 18 01/21/25 10:16 63 98 01/21/25 10:14 60 94 01/21/25 10:12 60 111/55 L 01/21/25 10:11 63 98 01/21/25 10:06 78 98 01/21/25 10:02 66 116/56 L 01/21/25 10:01 63 96 01/21/25 09:56 66 97 01/21/25 09:52 80 106/62 01/21/25 09:51 77 98 01/21/25 09:50 18 01/21/25 09:46 76 96 01/21/25 09:42 56 L 93/49 L 01/21/25 09:41 61 97 01/21/25 09:40 18 01/21/25 09:40 18 01/21/25 09:36 76 96 01/21/25 09:32 67 108/53 L 01/21/25 09:31 72 97 01/21/25 09:30 18 01/21/25 09:26 67 98 01/21/25 09:22 83 126/58 L 01/21/25 09:21 75 97 01/21/25 09:16 87 97 01/21/25 09:12 67 108/58 L 01/21/25 09:11 71 98 01/21/25 09:06 84 99 01/21/25 09:02 107/59 L 01/21/25 09:01 79 95 01/21/25 09:00 18 01/21/25 08:57 67 86 L 01/21/25 08:56 70 96 01/21/25 08:51 70 107/57 L 95 01/21/25 08:50 36.5 C 18 01/21/25 05:54 83 135/81 01/21/25 05:40 36.8 C 18 Transfer of Care Handoff Completed per policy Notes Mental Status: alert / awake / arousable Patient Amnestic to Procedure: Yes Nausea / Vomiting: adequately controlled Pain: adequately controlled Airway Patency, RR, SpO2: stable & adequate BP & HR: stable & adequate Hydration State: stable & adequate Neuraxial Anesthesia: was administered and sensory block is resolving Anesthetic Complications: no major complications apparent
[2025-01-21] MEDS: SIMETHICONE 80 MG CHEW PO SCH (12:46)
[2025-01-21] MEDS: ACETAMINOPHEN 325 MG TAB PO SCH (15:04)
[2025-01-21] MEDS: OXYTOCIN 20 UNITS/LR 1,002 ML IV SCH (15:05)
[2025-01-21 19:44] VITALS: RESP 18
[2025-01-21] MEDS: DOCUSATE SODIUM 100 MG CAP PO SCH (20:28)
[2025-01-22] MEDS ORDERED: diphenhydrAMINE 50 MG/ML VIAL IV PRN (01:55)
[2025-01-22] MEDS ORDERED: diphenhydrAMINE Capsule 25 MG CAP PO PRN (01:55)
[2025-01-22] MEDS ORDERED: PROMETHAZINE 12.5 MG/50.5 ML BAG IV PRN (01:55)
[2025-01-22] MEDS ORDERED: ONDANSETRON INJ 2 MG/ML 2 ML VIAL IV PRN (01:55)
[2025-01-22 03:18] VITALS: O2SAT 96
[2025-01-22 06:36] LABS: Hematocrit (blood only) 33.0 % (37.0-47.0); Hemoglobin 11.4 g/dl (12.0-16.0); Immature Granulocytes # (auto) 0.04 K/uL (0.01-0.20); Immature Granulocytes % (auto) 0.5 %; Mean Corpuscular Hemoglobin 31.9 pg (25.0-34.0); Mean Corpuscular Volume 92.4 fL (80.0-100.0); Platelet Count 155 K/uL (130-400); RDW Standard Deviation 45.5 fL (36.4-46.3); Red Blood Count 3.57 M/uL (4.20-5.40); White Blood Count 8.55 K/ul (4.8-10.8)
--- NOTE | 2025-01-22 07:36 | Obstetrical Progress Note ---
Date of Service <Anurag Polanco MD - Last Filed: 01/22/25 08:51> January 22, 2025 Assessment & Plan <Anurag Polanco MD - Last Filed: 01/22/25 08:51> (1) care and examination: 29 yo post-op day 1 s/p section Fells well today Continue post- care Encourage ambulation and Pain controlled with Ketorlac, Tylenol Vitals and Hgb stable <Paola Rivas DO - Last Filed: 01/22/25 10:03> (1) care and examination: Subjective <Anurag Polanco MD - Last Filed: 01/22/25 08:51> 29yo post-op day 1 s/p section Ambulation: Ambulating normally Voiding: No voiding problems Passing Gas:: No Diet Tolerance:: regular diet Lochia:: Small Feeding Type:: breast feeding Current Pain Level: 0/10 controlled with Tylenol, ketorlac Resting comfortably this AM in NAD. Denies BERGMAN, CP, SOB, N/V/D, LE pain/swelling. Physical Exam <Anurag Polanco MD - Last Filed: 01/22/25 08:51> General: patient resting comfortably, NAD, non-toxic in appearance, answers questions appropriately Skin: warm, dry, intact Heart: S1/S2 heard, regular, no m/r/g Lungs: equal air entry bilaterally, no rales/rhonchi/wheezes Abd: Normoactive BS, soft, NT/ND, uterine fundus firm at umbilicus, incision clean, dry, and intact with dressing Ext: warm, no clubbing/cyanosis or edema, Iwona's neg Neuro: nonfocal, patient AAOx4, speech intact, no facial droop, moving all extremities on command Results & Data <Anurag Polanco MD - Last Filed: 01/22/25 08:51> Vital Signs (Past 12 Hours) Vital Signs Temp Pulse Resp BP Pulse Ox O2 Del Method 01/22/25 03:17 36.7 C 64 18 120/83 96 Room Air 01/22/25 02:00 18 97 01/22/25 01:00 18 96 01/22/25 00:02 36.6 C 55 L 18 110/74 96 Room Air 01/22/25 00:02 18 96 01/21/25 23:05 18 97 01/21/25 22:20 18 96 01/21/25 21:17 18 97 01/21/25 20:15 18 96 Supervising Physician <Paola Rivas DO - Last Filed: 01/22/25 10:03> Co-Signing Physician Notes Resident Physician Supervision Note: I interviewed and examined the patient. Discussed with Dr. Polanco and agree with findings and plan as documented in the note. Any exceptions or clarifications are listed here: POD#1 doing well, desires DC home today. Does not desire Rx pain medication - doing well with tylenol/ibuprofen. Documented By: Paola Rivas DO Resident Activity Tracking <Anurag Polanco MD - Last Filed: 01/22/25 08:51> Resident Involvement: Resident Care Provided Care Provided: OB Delivery
[2025-01-22] MEDS ORDERED: KETOROLAC 30 MG/ML VIAL IV PRN (08:57)
[2025-01-22] MEDS: PRENATAL VITAMIN 1 TAB PO SCH (09:05)
[2025-01-22] MEDS: FERROUS SULFATE 325 MG TAB PO SCH (09:05)
[2025-01-22] MEDS: IBUPROFEN 600 MG TAB PO SCH (09:06)
[2025-01-22] MEDS: ADVANCED PROBIOTIC 625 MG CAPSULE PO SCH (09:07)
[2025-01-22] MEDS: CHOLECALCIFEROL 25 MCG (1000 UNITS) TAB PO SCH (09:08)
[2025-01-22] MEDS: MoRPHine SULFATE PF 1 MG/ML 10 ML AMP/VIAL INT SPINAL ONE (10:26)
[2025-01-22] MEDS: SODIUM CHLORIDE 0.9% 1,000 ML IV SCH (10:27)
[2025-01-22] MEDS: DIPHTHER/TETAN/PERTUS Vaccine (Tdap, Adol/Adult) 0.5mL IM ONE (10:28)
[2025-01-22] MEDS: LACTATED RINGER'S 1,000 ML IV SCH (10:28)
[2025-01-22] MEDS: MEASLES, MUMPS & RUBELLA VIRUS VACCINE (MMR) 0.5ML VIAL SQ ONE (10:32)
[2025-01-22 10:44] VITALS: BP 125/77; PULSE 76; TEMP 98.4
[2025-01-23] MEDS ORDERED: IBUPROFEN 600 MG TAB PO PRN (08:57)
[2025-01-23] MEDS ORDERED: ACETAMINOPHEN 325 MG TAB PO PRN (14:57)
== END 2025-01-22 15:46 | disposition home or self-care (01) | DRG 787 ==
LOC: 4S1 05:26 → EDSTATUS 08:50 → 4E2 11:00